=== PATIENT | male | born 1975 | race Caucasian/White ===

== ENCOUNTER 2016-06-30 05:10 | Emergency (ER) ==
[2016-06-30] MEDS ORDERED: MORPHINE IV ONE (05:20)
[2016-06-30] MEDS ORDERED: ZOFRAN IV ONE (05:20)
--- NOTE | 2016-06-30 05:26 | PROVIDER DOCUMENTATION ---
HPI-Chest Pain - General Source: patient, EMS <Hilario Mckay - Last Filed: 06/30/16 05:56> <Dhaval Chen - Last Filed: 06/30/16 06:51> - General Chief Complaint: Chest Pain Stated Complaint: FALL CHEST PAIN Time Seen by Provider: 06/30/16 05:13 Allergies/Adverse Reactions: Patient Allergies Allergy/AdvReac Type Severity Reaction Status Date / Time Penicillins Allergy Severe anaphylacti Verified 06/30/16 05:33 c Home Medications: Home Medication List Medication Instructions Recorded Confirmed Last Taken Type No Home Medications 06/30/16 06/30/16 Unknown History - History of Present Illness-CP Nature of Presenting Problem: pt states he got to get ready for work, felt lightheaded and landed on the floor and has had substernal chest pain since. This happened in the last 30 minutes. The pain is constant, pressure and sharp. It does not radiate although he reports his left arms feels tingling. He has felt slightly SOB, moderate nausea and got very diaphoretic. He denies recent illness. He was given ASA in the ambulance as well as nitro. Currently the paiin is 8/10. 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 no hx of HTN, DM. No FH of CAD. He has never had his cholesterol checked (Hilario Mckay) Review of Systems - Adult - REVIEW OF SYSTEMS - ADULT Constitutional: denies: chills, fever Eyes: denies: discharge Ears, Nose, Mouth & Throat: denies: ear pain, sinus problem, throat pain Cardiovascular: reports: see HPI, syncope. denies: edema, palpitations Respiratory: reports: shortness of breath. denies: cough, pleurisy, wheezing Gastrointestinal: reports: nausea. denies: abdominal pain, diarrhea, vomiting Genitourinary: denies: dysuria, frequency, flank pain Musculoskeletal: denies: back pain, neck pain Integumentary: denies: rash Neurological: denies: headache/migraines, numbness, paresthesia Psychiatric: reports: no symptoms reported Endocrine: reports: no symptoms reported Hematologic/Lymphatic: reports: no symptoms reported Allergic/Immunologic: reports: no symptoms reported All Other Systems: Reviewed and Negative <Eric Mckayjacque TrammellEmma - Last Filed: 06/30/16 05:56> Past History - Adult - PAST MEDICAL HISTORY-ADULT Review of Records: reports: Old Records Reviewed, Nursing Assessment Review, Medications Reviewed, Social history reviewed & non-contributory. Major Childhood Illnesses: reports: denies history Cardiovascular: reports: denies history Respiratory: reports: denies history Gastrointestinal: reports: denies history Obstetrical/Gynecological: reports: denies history Genitourinary: reports: denies history Musculoskeletal: reports: denies history Neurological: reports: denies history Endocrine/Immune: reports: denies history Other Conditions: reports: denies history - PRIOR SURGERIES/PROCEDURES Surgical/Procedure History: reports: reviewed, not pertinent - IMMUNIZATION STATUS Childhood Immunizations: See Nurse Assessment Flu Vaccine: See Nurse Assessment - FAMILY HISTORY Family History: reviewed, not pertinent - SOCIAL HISTORY Smoking: denies Substance Use: amphetamines (quit 1 year ago) Alcohol Use Frequency: never Living Situation: family <GeovannyHilario Real JpEmma - Last Filed: 06/30/16 05:56> Physical Exam-General - PHYSICAL EXAM-ADULT Initial Vital Signs Reviewed: Yes - CONSTITUTIONAL General Appearance: appears well, alert, no apparent distress - EYES Eyes: pink conjunctivae. negative: scleral icterus - HEAD, EARS, NOSE, MOUTH & THROAT HENMT: normocephalic/atraumatic, pharynx normal - NECK Neck: non-tender, full range of motion, supple, normal inspection. negative: lymphadenopathy - RESPIRATORY Respiratory: chest non-tender, lungs clear, normal breath sounds, no pleuratic chest pain, no respiratory distress, no accessory muscle use - CARDIOVASCULAR Cardiovascular: regular rate, rhythm, no edema, no murmur - CHEST (BREASTS) Chest/Breast: negative: no tenderness (mild tenderness that does not reproduce his pain) - GASTROINTESTINAL (ABDOMEN) Abdominal Exam: normal bowel sounds, non tender, soft, no organomegaly, no pulsatile mass - MUSCULOSKELETAL Back Exam: normal inspection, no CVA tenderness, no vertebral tenderness Extremity: non-tender, normal inspection, no pedal edema, no calf tenderness - SKIN Integumentary: normal color, normal turgor, diaphoresis - NEUROLOGIC Neurologic: research consultant II-XII nml as tested, grossly normal, no motor/sensory deficits - PSYCHIATRIC Psych/Mental Status: normal mood/affect, normal thought content, normal thought process, oriented x 3 <Hilario Mckay - Last Filed: 06/30/16 05:56> Progress - EKG 1 Time of EKG reading by physician:: 05:15 EKG Interpretation (*Must complete 3 of following elements*): Normal Rate: 100 Rhythm: sinus [place]: normal QRS: normal [place] Interval: normal ST Wave: normal Prior EKG Comparison: no prior EKG - XRAY 1 XRAY Study: Chest Impression: Normal - CHANGE OF SHIFT REPORT (ED Provider) Report Given and Care Transferred to:: Dr Chen Time of Transfer: 05:56 Items Pending: Labs Tentative Impression of Patient: chest pain <Hilario Mckay - Last Filed: 06/30/16 05:56> - CONSULTS/PCP/HOSPITALIST Notification Time Discussed: 06:50 Consult Disposition: Admit <Dhaval Chen - Last Filed: 06/30/16 06:51> - PLAN OF CARE/RESULTS Progress/Plan/Lab Results: 0640 Assumed care of patient from Dr Mckay at 0600 pending labs. Troponin and D-dimer are neg. EKG and CXR are unremarkable. Pt reports being dizzy and having chest pain at about 0400. Syncope with no sz activity. Was diaphoretic upon presentation. Will contact hospitalist for admission for serial cardiac enzymes and further evaluation. Patient and family are comfortable with the plan. (Dhaval Chen) Departure <Hilario Mckay - Last Filed: 06/30/16 05:56> - Departure Time of Disposition Order: 06:50 Certified Medical Emergency: Emergent <Dhaval Chen - Last Filed: 06/30/16 06:51> - Departure DIAGNOSIS: Syncope, cardiogenic Chest pain Qualifiers: Chest pain type: unspecified Qualified Code(s): R07.9 - Chest pain, unspecified Disposition: ADMITTED INPATIENT 09 Condition: Stable Physician Attestation
[2016-06-30] MEDS ORDERED: NITROGLYCERIN TOP ONE (05:30)
[2016-06-30 05:35] LABS: MANUAL DIFF NEEDED? NO
[2016-06-30 05:43] LABS: BASO% 0.6 % (0.0-0.8); EOS# 0.16 X1000 (0.0-0.7); EOS% 2.3 % (0.0-10.0); HEMATOCRIT 46.5 % (42.0-52.0); HEMOGLOBIN 15.6 g/dL (14.0-18.0); LYMPH# 2.99 X1000 (1.2-3.4); LYMPH% 42.7 % (20.5-51.1); MCH 30.5 PG (27-31); MCHC 33.5 g/dL (33-37); MCV 90.8 FL (81-99); MONO% 5.7 % (1.7-9.3); MPV 10.4 FL (7.4-10.4); NEUT% 48.7 % (42.2-75.2); PLT 351 X1000 (130-400); RBC 5.12 XMIL (4.7-6.1)
[2016-06-30 05:50] LABS: INR 0.93; PROTIME 9.8 Seconds (9.2-11.7); PTT 25.5 Seconds (22.0-36.0)
--- NOTE | 2016-06-30 05:51 | EKG Report ---
Test Performed on : 06/30/2016 05:12:15 AM Test Reason : CP Blood Pressure : / mmHG Vent. Rate : 100 BPM Atrial Rate : 100 BPM P-R Int : 132 ms QRS Dur : 076 ms QT Int : 322 ms P-R-T Axes : 044 053 042 degrees QTc Int : 415 ms Normal sinus rhythm. Normal ECG No previous ECGs available Unconfirmed Result
[2016-06-30 06:07] LABS: AGAP 12; ALBUMIN 4.5 g/dL (3.5-5.0); ALKALINE PHOSPHATASE 87 U/L (32-122); BUN 11 mg/dL (8-22); CALCIUM 9.5 mg/dL (8.8-10.2); CHLORIDE 101 mmol/L (98-107); CK PROFILE 95 U/L (24-204); COSMO 277; GOT 17 U/L (10-34); GPT 26 U/L (10-44); MAGNESIUM 1.8 mg/dL (1.5-2.7); POTASSIUM 4.4 mmol/L (3.5-5.1); SODIUM 139 mmol/L (136-145); TCO2 26 mmol/L (25-35); TOTAL BILIRUBIN 0.22 mg/dL (0.20-1.00); TOTAL PROTEIN 7.7 g/dL (6.3-8.3)
--- NOTE | 2016-06-30 06:43 | Diag Imaging Result Document ---
PROCEDURE NAME: CHEST-2 VIEWS - 06/30/2016 FRONTAL AND LATERAL CHEST, TWO VIEWS: COMPARISON: Compared to 09/23/2015. FINDINGS: The lungs are well expanded. The heart is not enlarged. The vessels are not distended. No pneumonia. No pleural effusions. No free air beneath the diaphragm. IMPRESSION: No acute abnormality.
[2016-06-30] MEDS ORDERED: NITROGLYCERIN SL ONE (08:08)
[2016-06-30 09:48] LABS: UR AMPHETAMINES QUAL NONE DETECTED (NONE DETECT); UR BARBITUATES QUAL NONE DETECTED (NONE DETECT); UR BENZODIAZEPIN QUAL NONE DETECTED (NONE DETECT); UR CANNABINOIDS QUAL NONE DETECTED (NONE DETECT); UR COCAINE QUAL NONE DETECTED (NONE DETECT); UR METHADONE QUAL NONE DETECTED (NONE DETECT); UR OPIATES QUAL PRESUMPTIVE POSITIVE (NONE DETECT); UR OXYCODONE QUAL NONE DETECTED (NONE DETECT); UR PCP QUAL NONE DETECTED (NONE DETECT)
--- NOTE | 2016-06-30 10:23 | ED EKG INTERP ---
EKG Interpretation - EKG Time of EKG reading by physician:: 10:21 EKG Read and Signed by:: Dhaval Chen EKG Interpretation (*Must complete 3 of following elements*): Normal Rate: 67 Rhythm: NSR [place]: normal QRS: normal [place] Interval: normal ST Wave: normal Attestation - Scribe Verification/Attestation Scribe:: Jamil Mcknight Acting as Scribe for:: Dhaval Chen Scribe documention review:: This chart was documented by a scribe and accurately reflects the service the provider performed and the decisions made by the provider. Physician Attestation - Physician Attestation I, the provider, attest to the following statement:: Dhaval Chen Physician documentation Attestation:: This documentation recorded by the scribe accurately reflects the service I personally performed and the decisions made by me.
[2016-06-30 10:46] VITALS: BP 107/77
--- NOTE | 2016-06-30 13:38 | EKG Report ---
Test Performed on : 06/30/2016 10:06:30 AM Test Reason : ED. Not ordered in [place] Blood Pressure : / mmHG Vent. Rate : 067 BPM Atrial Rate : 067 BPM P-R Int : 156 ms QRS Dur : 082 ms QT Int : 370 ms P-R-T Axes : 032 008 022 degrees QTc Int : 390 ms Normal sinus rhythm. Normal ECG When compared with ECG of 30-JUN-2016 05:12, (Unconfirmed) Vent. rate has decreased BY 33 BPM Unconfirmed Result
--- NOTE | 2016-06-30 14:55 | CONSULTATION ---
DATE OF CONSULTATION: 06/30/2016 REQUESTING PHYSICIAN: Dr. Chen REASON FOR CONSULTATION: Evaluation of patient for admission. CHIEF COMPLAINT: Chest pain. HISTORY OF PRESENT ILLNESS: The patient is a 40-year-old white male with no past medical history, who presented to the emergency room with few month history of chest pain. The pain is palpable, at is about 2/6. The patient has no nausea or vomiting associated with it, just pain is reproducible. This morning, when he woke-up he was in the bathroom and he has almost passed out. He did not hit his head or any other part of his body according to him that can be obviously seen. His electrocardiogram is normal when he came in. The patient is still having some 1/10 chest pain, sharp in nature, associated with breathing, associated with movement. Nothing makes it better. Nothing makes it worse. The pain does not radiate. The patient reports having a mild cough for the past several weeks, but no productive cough. 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 PAST MEDICAL HISTORY: None. PAST SURGICAL HISTORY: None. ALLERGIES: Allergy to penicillin that caused anaphylactic shock. FAMILY HISTORY: Mother has heart disease at later age in life, but still alive. SOCIAL HISTORY: The patient denies tobacco, alcohol, or drugs. Currently he was a previous drug user. HOME MEDICATIONS: The patient not take any medications. REVIEW OF SYSTEMS: Twelve systems were reviewed and were negative for any acute process. PHYSICAL EXAMINATION: Vital Signs: Blood pressure 119/75, pulse of 93, respiration 18, temperature 98.2 degrees, sat 93-99% on room air. General Appearance: Well- developed, well- nourished white male, in no acute distress. HEENT: Anicteric. Clear conjunctivae. Neck: Supple. No jugular venous distention. No bruit. Cardiovascular: S1, S2. Normal rate and rhythm. No murmur, rubs, or gallops. Pulmonary: Clear to auscultation bilaterally. Gastrointestinal: Soft, nontender, nondistended. Normoactive bowel sounds. Musculoskeletal: No clubbing, cyanosis, or edema. LABORATORY DATA: His white count 7.01, hemoglobin 15.6, hematocrit of 46.5, platelets of 351,000. Chemistry: Sodium 139, potassium 4.4, chloride 101, bicarb 26. BUN 11, creatinine 1.0. Liver function tests within normal limit. Troponins 2 sets were negative. Chest x- ray is normal. EKG showed sinus rhythm. No ST changes. ASSESSMENT AND PLAN: This is a 40-year-old presented to the emergency room with syncope. Syncope consistent with vasovagal. The patient was urinating when this happened. The patient is too young to have significant coronary artery or peripheral vascular disease to cause him to have cardiovascular syncope. His troponin has been negative. His chest pain is consistent with musculoskeletal. PLAN: Will discharge the patient home with anti-inflammatories for the next 5 days and have him to follow will cardiology if he continues to have further syncopal episodes, but this episode is consistent with vasovagal. MTDJalyn
== END 2016-06-30 11:29 | disposition home or self-care (01) ==
LOC: ED 05:10
DX: R55 Syncope and collapse (principal); R07.89 Other chest pain; R42 Dizziness and giddiness; R06.02 Shortness of breath; R11.0 Nausea; R61 Generalized hyperhidrosis
CPT/HCPCS: 71020; 80053; 82550; 82948; 83735; 83880; 84484; 85025; 85379; 85610; 85730; 93005; G0480; J2270; J2405; 80324; 80345; 80346; 80349; 80353; 80358; 80361; 80365; 83992

== ENCOUNTER 2016-06-30 19:55 | Inpatient (IN) ==
--- NOTE | 2016-06-30 20:54 | PROVIDER DOCUMENTATION ---
HPI-Cardiac General <Cherie Kohli - Last Filed: 06/30/16 21:09> - General Source: patient, family - History of Present Illness-Cardiac Location: reports: substernal Quality of Pain: reports: pressure, tearing Severity in ED: moderate Onset/Duration: abrupt, 1-3 hours ago Timing: improving Context/Activities at Onset: reports: light activity Modifying Factors: improves with: nothing History of arrythmia: reports: none Recent use of:: reports: no stimulants Prior Chest Pain/Cardiac Workup: reports: no prior cardiac workup Associated Symptoms: reports: diaphoresis, dizziness, nausea Similar Symptoms Previously?: Yes Recently Seen Here or By Another Healthcare Provider: Yes (This am) <Rico Kwok - Last Filed: 07/01/16 01:52> - General Chief Complaint: Altered Mental Status Stated Complaint: AMS Time Seen by Provider: 06/30/16 20:09 Allergies/Adverse Reactions: Patient Allergies Allergy/AdvReac Type Severity Reaction Status Date / Time Penicillins Allergy Severe anaphylacti Verified 06/30/16 20:15 c Home Medications: Home Medication List Medication Instructions Recorded Confirmed Last Taken Type Indomethacin [Indocin] 25 mg PO TID #15 capsule 06/30/16 06/30/16 06/30/16 19: 30 Rx - History of Present Illness-Cardiac Nature of Presenting Problem: 40 yo WM brought to ER via ambulance due to a third episode of severe chest pain associated with intense diaphoresis, and nausea. He had similar CP several weeks ago but did not seek medical attention and a second episode around 4 am today. He was evaluated in the ER and eventually discharged by the Hospitalist from the ER. CXR. troponin etc where normal. He returns tonight wisth intense diaphoresis and CP. (Rico Kwok) Review of Systems - Adult - REVIEW OF SYSTEMS - ADULT ROS:: limited per condition Constitutional: reports: no symptoms reported, see HPI Eyes: reports: no symptoms reported Ears, Nose, Mouth & Throat: reports: no symptoms reported Cardiovascular: reports: see HPI Respiratory: reports: see HPI Gastrointestinal: reports: no symptoms reported Genitourinary: reports: no symptoms reported Musculoskeletal: reports: no symptoms reported Integumentary: reports: no symptoms reported Neurological: reports: no symptoms reported Psychiatric: reports: no symptoms reported Endocrine: reports: no symptoms reported Hematologic/Lymphatic: reports: no symptoms reported Allergic/Immunologic: reports: no symptoms reported All Other Systems: Reviewed and Negative <Rico Kwok - Last Filed: 07/01/16 01:52> Past History - Adult - PAST MEDICAL HISTORY-ADULT Review of Records: reports: Old Records Reviewed Major Childhood Illnesses: reports: denies history Cardiovascular: reports: denies history Respiratory: reports: denies history Gastrointestinal: reports: denies history Obstetrical/Gynecological: reports: denies history Genitourinary: reports: denies history Musculoskeletal: reports: denies history Neurological: reports: denies history Endocrine/Immune: reports: denies history Other Conditions: reports: denies history - PRIOR SURGERIES/PROCEDURES Surgical/Procedure History: reports: reviewed, not pertinent - IMMUNIZATION STATUS Childhood Immunizations: See Nurse Assessment Flu Vaccine: See Nurse Assessment - FAMILY HISTORY Family History: reviewed, not pertinent - SOCIAL HISTORY Substance Use: none presently/history of abuse, amphetamines <Rico Kwok - Last Filed: 07/01/16 01:52> Physical Exam-General - PHYSICAL EXAM-ADULT Initial Vital Signs Reviewed: Yes - CONSTITUTIONAL General Appearance: alert, mild distress - EYES Eyes: PERRL/EOMI, pink conjunctivae - HEAD, EARS, NOSE, MOUTH & THROAT HENMT: normocephalic/atraumatic, moist mucous membranes, normal ENT inspection - NECK Neck: non-tender, full range of motion - RESPIRATORY Respiratory: chest non-tender, lungs clear, normal breath sounds, no respiratory distress - CARDIOVASCULAR Cardiovascular: normal peripheral pulses - GASTROINTESTINAL (ABDOMEN) Abdominal Exam: normal bowel sounds, non tender, soft, no organomegaly - LYMPHATIC Lymphatic: no adenopathy - MUSCULOSKELETAL Extremity: normal range of motion, non-tender Peripheral Pulses: radial (R): 3+, radial (L): 3+ - SKIN Integumentary: normal color, normal turgor - NEUROLOGIC Neurologic: grossly normal - PSYCHIATRIC Psych/Mental Status: negative: normal thought content, normal thought process, oriented x 3 <Rico Kwok - Last Filed: 07/01/16 01:52> Progress - EKG 1 Time of EKG reading by physician:: 20:05 EKG Read and Signed by:: Rico Kwok EKG Interpretation (*Must complete 3 of following elements*): Abnormal Rate: 83 Rhythm: NSR ST Wave: non-specific ST changes (junctional ST depression) <Cherie Kohli - Last Filed: 06/30/16 21:09> - EKG 1 Time of EKG reading by physician:: 01:24 EKG Read and Signed by:: Rico Kwok EKG Interpretation (*Must complete 3 of following elements*): Normal Rate: 80 Rhythm: sinus [place]: normal <Rico Kwok - Last Filed: 07/01/16 01:52> Departure <Cherie Kohli - Last Filed: 06/30/16 21:09> - Departure Time of Disposition Order: 00:20 Certified Medical Emergency: Emergent - Critical Care Note Total Time (mins): 30 Critical Care Statement: This patient required my direct personal management to treat or rule out processes, the absence of which, could potentiallly result in sudden, clinically significant life or limb threatening deterioration. <Rico Kwok - Last Filed: 07/01/16 01:52> - Departure DIAGNOSIS: Chest pain Qualifiers: Chest pain type: other chest pain Qualified Code(s): R07.89 - Other chest pain Disposition: ADMITTED INPATIENT 09 Condition: Fair Referrals: None,PCP [Primary Care Provider] - Physician Attestation
[2016-06-30] MEDS ORDERED: NORCO-7.5 PO ONE (21:40)
[2016-06-30] MEDS ORDERED: G.I. COCKTAIL PO ONE (23:08)
[2016-07-01] MEDS ORDERED: ZOFRAN IV PRN (01:46)
[2016-07-01] MEDS: TYLENOL PO PRN (02:24)
--- NOTE | 2016-07-01 04:32 | HISTORY AND PHYSICAL ---
CHIEF COMPLAINT: Chest pain. HISTORY OF PRESENTING ILLNESS: A 40-year-old male without any past medical history, had presented to Emergency Department with 3 weeks' history of some intermittent chest pain. He describes it as substernal and sharp and at times pressure-like with radiation to left upper arm. The patient was seen in the ER earlier in the morning and at that time, he was diagnosed with musculoskeletal pain and sent home; however, he returned back with more intense pain and was somewhat diaphoretic and due to his presenting symptoms, it was thought that we would place him for observation for further evaluation and management. At the time of my examination, he had denied any headaches, vision changes, fevers, chills, shortness of breath, hemoptysis, melena, weight changes, but complained of chest discomfort. PAST MEDICAL HISTORY: None. PAST SURGICAL HISTORY: None. ALLERGIES: Penicillin. CURRENT MEDICATIONS: None. SOCIAL HISTORY: No history of smoking. Admits to social alcohol use in the past. History of methamphetamine use in the past. He states he has been clean for about a year. FAMILY HISTORY: Positive for coronary disease in mother. REVIEW OF SYSTEMS: Twelve point review of systems listed as in HPI. Other systems negative. PHYSICAL EXAMINATION: GENERAL: Cooperative, friendly male. He is resting comfortably now. VITAL SIGNS: Temperature 97.9 degrees, pulse 83, respiration 18, blood pressure 138/78, saturating 100%. HEENT: Atraumatic, normocephalic. Extraocular movements intact. PERRLA. NECK: Supple. CHEST: Clear to auscultation. CARDIOVASCULAR: Regular rate and rhythm. ABDOMEN: Soft, nontender. Positive bowel sounds. EXTREMITIES: No edema. NEURO: He is awake, alert, oriented x3. : No bladder distention. SKIN: Warm. LABORATORY STUDIES: Troponin is 0.0. ASSESSMENT: This is a 40-year-old male, who had presented to the emergency department 2 times with complaint of chest pain. We will place patient for observation for further evaluation and management. Chest pain. PLAN: 1. We will admit patient to medical floor with telemetry. 2. Continue with cardiac workup. Check EKG, serial cardiac enzymes. Have patient continue on aspirin. Use sublingual nitroglycerin, morphine p.r.n. chest pain. 3. We will check an echocardiogram and schedule patient for a nuclear GXT. 4. We will continue to follow and reassess. MTDD
[2016-07-01] MEDS ORDERED: FLUZONE QUAD 2016-2017 SYRINGE IM ONE (06:00)
--- NOTE | 2016-07-01 06:03 | EKG Report ---
Test Performed on : 06/30/2016 8:05:15 PM Test Reason : CP Blood Pressure : / mmHG Vent. Rate : 083 BPM Atrial Rate : 083 BPM P-R Int : 128 ms QRS Dur : 076 ms QT Int : 348 ms P-R-T Axes : 058 024 027 degrees QTc Int : 408 ms Normal sinus rhythm. Junctional ST depression, probably normal Borderline ECG When compared with ECG of 30-JUN-2016 10:06, (Unconfirmed) No significant change was found Unconfirmed Result
[2016-07-01] MEDS: PRILOSEC PO SCH (06:16)
--- NOTE | 2016-07-01 07:52 | Diag Imaging Result Document ---
PROCEDURE NAME: CTA THORAX/ABDOMEN/PELVIS - 06/30/2016 CT ANGIOGRAM THORAX AND ABDOMEN WITH CONTRAST: Exam performed with intravenous contrast. Axial and reformatted sagittal and coronal images are obtained. A dose-reduction protocol was used. FINDINGS: There is no evidence of aortic aneurysm. There is no evidence of aortic dissection. There is no mediastinal hematoma or pericardial fluid identified. There is subsegmental atelectasis at the left lingula. The remainder of the lungs appear clear. There is no consolidation, pleural effusion, or pneumothorax identified. While this is not a dedicated CT pulmonary angiogram, there are no filling defects identified in the pulmonary arteries. There is retained fecal debris in the colon suggesting constipation. There is no evidence of bowel obstruction. There is no free air. There are nonspecific small retroperitoneal lymph nodes. IMPRESSION: 1. No evidence of aortic aneurysm. No evidence of aortic dissection. 2. Subsegmental atelectasis at left lingula. No pneumonia. No pleural effusion. No pneumothorax. 3. Evidence of constipation noted. The on-call radiologist provided preliminary results at 9:43 p.m. on 06/30/2016.
[2016-07-01 08:05] LABS: MANUAL DIFF NEEDED? NO
[2016-07-01 08:06] LABS: BASO% 0.3 % (0.0-0.8); EOS# 0.16 X1000 (0.0-0.7); EOS% 2.2 % (0.0-10.0); HEMATOCRIT 42.4 % (42.0-52.0); HEMOGLOBIN 14.4 g/dL (14.0-18.0); LYMPH# 2.49 X1000 (1.2-3.4); LYMPH% 34.5 % (20.5-51.1); MCH 30.8 PG (27-31); MCV 90.6 FL (81-99); MONO% 6.9 % (1.7-9.3); MPV 9.9 FL (7.4-10.4); NEUT% 56.1 % (42.2-75.2); PLT 286 X1000 (130-400); RBC 4.68 XMIL (4.7-6.1)
[2016-07-01 08:07] LABS: ALLEN TEST YES; BLOOD TYPE ARTERIAL; DRAW SITE L RADIAL; METHB 1.5 % (0.0-1.5); O2(CT) 20.6 mL/dL (15.0-23.0); PCO2(98.6) 44 mmHg (35-45); PO2(98.6) 81 mmHg (60-100); SAMPLE BLOOD; SAO2 98.5 % (95.0-100.0); THB 15.4 g/dL (11.5-17.4)
[2016-07-01 08:08] LABS: MODALITY ROOM AIR
[2016-07-01 08:35] LABS: AGAP 13; ALBUMIN 4.1 g/dL (3.5-5.0); ALKALINE PHOSPHATASE 76 U/L (32-122); BUN 12 mg/dL (8-22); CALCIUM 9.1 mg/dL (8.8-10.2); CHLORIDE 100 mmol/L (98-107); COSMO 275; GOT 15 U/L (10-34); GPT 21 U/L (10-44); POTASSIUM 4.3 mmol/L (3.5-5.1); SODIUM 138 mmol/L (136-145); TCO2 25 mmol/L (25-35); TOTAL BILIRUBIN 0.25 mg/dL (0.20-1.00); TOTAL PROTEIN 6.8 g/dL (6.3-8.3)
[2016-07-01 09:40] LABS: UR AMPHETAMINES QUAL NONE DETECTED (NONE DETECT); UR BARBITUATES QUAL PRESUMPTIVE POSITIVE (NONE DETECT); UR BENZODIAZEPIN QUAL NONE DETECTED (NONE DETECT); UR CANNABINOIDS QUAL NONE DETECTED (NONE DETECT); UR COCAINE QUAL NONE DETECTED (NONE DETECT); UR METHADONE QUAL NONE DETECTED (NONE DETECT); UR OPIATES QUAL PRESUMPTIVE POSITIVE (NONE DETECT); UR OXYCODONE QUAL NONE DETECTED (NONE DETECT); UR PCP QUAL NONE DETECTED (NONE DETECT)
[2016-07-01] MEDS: ASPIRIN PO SCH (10:19)
--- NOTE | 2016-07-01 12:49 | PROGRESS NOTE ---
DATE: 07/01/2016 SUBJECTIVE: The patient is still complaining of having chest pain and headache. OBJECTIVE: Vital Signs: Blood pressure 99/51, pulse of 51, respirations 16, temperature 97.8 degrees, saturation 96% on room air. General Appearance: Well-developed, well-nourished white male, in no acute distress. HEENT: Anicteric. Clear conjunctivae. Neck: Supple. No JVD. No bruit. Cardiovascular: S1 and S2. Normal rate and rhythm. No murmur, rubs, or gallops. Pulmonary: Clear to auscultation bilaterally. Gastrointestinal: Soft, nontender, nondistended. Normoactive bowel sounds. Musculoskeletal: No clubbing, cyanosis, or edema. LABORATORY: Sodium 138, potassium 4.3, chloride 100, bicarbonate 25, BUN 12, creatinine 0.9, glucose 91. White count 7.22, hemoglobin 14.4, hematocrit 42.4, platelets 286,000. Troponin x3 sets were negative. The CAT scan of the abdomen, chest, and pelvis was also negative. ASSESSMENT AND PLAN: This is a 40-year-old white male, admitted to the hospital for chest pain twice within 24 hours with negative troponin normal EKG. 1. Chest pain. Very atypical for cardiac, however, we will get an echocardiogram and we will get a nuclear medicine stress test. 2. Questionable seizure versus complex migraine. The patient has episode of severe headache followed by confusion and feeling drained afterwards. Will send the patient for an MRI. We will get an EEG to rule out seizure. We will most likely put the patient on Keppra for his complex migraine. 3. Deep vein thrombosis prophylaxis. The patient on Lovenox. 4. Code Status: The patient is a full code.
[2016-07-01] MEDS ORDERED: LEXISCAN ONE (13:57)
--- NOTE | 2016-07-01 17:13 | Diag Imaging Result Document ---
PROCEDURE NAME: MYOCARDIAL PERF SCAN, STR/REST - 07/01/2016 HISTORY: [id number] male. PROCEDURE: Rest/stress Lexiscan myocardial perfusion study. INDICATION: Chest pain. DESCRIPTION: The patient came into the nuclear lab on 07/01/2016 and received a rest injection of technetium-99 sestamibi 13.2 mCi. Multiple tomographic views of the cardiac structure were obtained at rest. Subsequently, patient underwent infusion of Lexiscan 0.4 mg. At peak infusion, injected with technetium-99 sestamibi 35.2 mCi. Multiple tomographic views of the cardiac structure were obtained following the completion of protocol. SUMMARY OF ELECTROCARDIOGRAPHIC PORTION OF THE STUDY: Resting electrocardiogram showed sinus rhythm, rate 61 beats per minute, resting blood pressure 141/88. Resting ECG was normal. During infusion of Lexiscan, the heart rate increased to a maximum of 113 beats per minute. Blood pressure went up to 163/94. The patient reported no chest pain, shortness of breath, or palpitations. EKG showed no significant ischemic changes. Following the completion of infusion, the heart rate and blood pressure returned back to his baseline. The patient reported no chest pain or any symptoms during the recovery phase. SUMMARY: Electrocardiographic response to infusion of Lexiscan is deemed to be normal. SUMMARY OF THE MYOCARDIAL PERFUSION PORTION OF THE STUDY: Poststress tomographic views of the left ventricle showed normal homogeneous distribution of radiotracer throughout the entire left ventricular myocardium. There is no evidence of any postexercise defect. Rest images showed normal perfusion. Polar plots reveal similar findings. There is no evidence of any inducible ischemia. No myocardial scar. Gated SPECT shows normal left ventricular systolic function, ejection fraction estimated at 73%, with normal ventricular volumes. No wall motion abnormality. Lung/heart ratio is normal. TID is normal. SUMMARY: This study showed: 1. Unremarkable electrocardiographic response to a plain Lexiscan protocol. 2. Normal poststress myocardial perfusion scan. There is no scintigraphic evidence of pharmacologically induced myocardial ischemia utilizing Lexiscan protocol. 3. Normal left ventricular systolic function, ejection fraction estimated at 73%, with normal ventricular volumes. No wall motion abnormality. 4. This study represents a low risk for ischemic events. 5. Clinical correlation is recommended.
--- NOTE | 2016-07-01 17:50 | Diag Imaging Result Document ---
PROCEDURE NAME: MRI BRAIN W W/O CONTRAST - 07/01/2016 MRI BRAIN WITHOUT AND WITH CONTRAST: FINDINGS: Images are obtained prior to and following Omniscan administration. No comparison MRI brain is available. There is no evidence of hemorrhage, mass effect, midline shift, or hydrocephalus. There are no substantial signal abnormalities identified. The diffusion-weighted images show no areas of restricted diffusion (no evidence of acute infarct). There is no abnormal enhancement seen. IMPRESSION: No visible intracranial abnormality.
--- NOTE | 2016-07-01 18:09 | ECHO REPORT ---
ORDER DATE: 07/01/2016 INTERPRETING PHYSICIAN: Dr. Prasad REQUESTING PHYSICIAN: CLINICAL INDICATIONS: Chest pain. M-MODE MEASUREMENTS: Right ventricle: 1.9 cm. Left ventricle end diastole: 4.5 cm. Left ventricle end systole: 2.9 cm. Posterior wall: 1.9 cm. Interventricular septum: 1.9 cm. Left atrium: 3.2 cm. Aortic root: 3.5 cm. SUMMARY OF 2-DIMENSIONAL IMAGIN. Left ventricular function is normal. Ejection fraction is 62%. The chamber appears to be within normal range. 2. Right ventricle appears to be normal. 3. Atria appear to be normal. 4. The mitral valve looks normal. Color flow mapping indicates mild degree of regurgitation. 5. Pulse wave Doppler of mitral inflow shows normal E/A ratio. Tissue Doppler of septal and lateral mitral annulus averages 10 cm. 6. Aortic valve looks normal. Color flow mapping is unremarkable. 7. Pulmonic valve looks normal. Color flow mapping is unremarkable. 8. Tricuspid valve shows mild degree of regurgitation. 9. Pulmonary pressure is estimated at 31 mmHg. Clinical correlation is recommended.
[2016-07-02 05:47] LABS: MANUAL DIFF NEEDED? NO
[2016-07-02 06:01] LABS: BASO% 0.3 % (0.0-0.8); EOS# 0.13 X1000 (0.0-0.7); HEMATOCRIT 41.5 % (42.0-52.0); HEMOGLOBIN 14.2 g/dL (14.0-18.0); LYMPH# 1.91 X1000 (1.2-3.4); LYMPH% 29.6 % (20.5-51.1); MCH 31.1 PG (27-31); MCHC 34.2 g/dL (33-37); MCV 90.8 FL (81-99); MONO# 0.43 X1000 (0.11-0.59); MONO% 6.7 % (1.7-9.3); MPV 10.1 FL (7.4-10.4); NEUT% 61.4 % (42.2-75.2); PLT 273 X1000 (130-400); RBC 4.57 XMIL (4.7-6.1)
[2016-07-02] MEDS: PRILOSEC PO SCH (06:29)
[2016-07-02] MEDS: ASPIRIN PO SCH (08:22)
[2016-07-02] MEDS: TYLENOL PO PRN (08:22)
[2016-07-02] MEDS ORDERED: KEPPRA PO SCH (11:15)
[2016-07-02 12:27] VITALS: BP 134/71
--- NOTE | 2016-07-02 14:02 | EEG REPORT ---
DATE: 07/01/2016 EEG #[id number] done on 07/01/2016. COMMENT: This is a digitally recorded EEG on a 40-year-old patient with reported history of episodes, question of seizure. FINDINGS: During waking, medium amplitude 10 Hz posterior rhythm is present symmetrically and reacts normally to eye opening. Background contains polymorphic and rhythmic theta frequencies over the frontal and central regions symmetrically. Drowsing occurred with attenuation of the posterior rhythm and appearance of more generalized slowing. Stage 2 sleep was not recorded. Photic stimulation did not significantly alter the record. There were several 2-2.5 second bursts of high-amplitude slowing with associated sharp wave, sharp and slow wave repetitive discharges. These were generalized. In addition, there was some eye blink artifact. The EEG was immediately normal after these short bursts. INTERPRETATION: Abnormal EEG because of generalized epileptiform discharge. CORRELATION: This is consistent with clinical seizure. [facility]
--- NOTE | 2016-07-03 08:07 | DISCHARGE SUMMARY ---
ADMISSION DATE: 07/01/2016 DISCHARGE DATE: 07/02/2016 PCP: None. DISCHARGE DIAGNOSIS: Complex migraine. DISCHARGE MEDICATIONS: 1. Indocin p.r.n. 2. Keppra 500 mg b.i.d. CONSULTATION: No consultation. PROCEDURES: No procedure. SIGNIFICANT LABORATORY AND IMAGINGS: Cardiac stress tests were negative for any reversible ischemia. EF is normal on echocardiogram. MRI of the brain was negative for any acute process. White count of 6.46, hemoglobin 14.2, hematocrit of 41.5, platelets of 273,000. Sodium 138, potassium 4.3, chloride 100, bicarb 25, BUN 12, creatinine 0.9, glucose of 91. HOSPITAL COURSE: The patient is a 40-year-old white male with a distant past history of drug use presented to the emergency room with headache and body ache, chest pain. I saw the patient once in the ER and sent him home. He came back within 24 hours, admitted for chest pain. We had the echocardiogram that was normal, troponin 3 sets were negative. Cardiac stress test was also negative. The patient started complaining having headache and some dizziness. We sent the patient for the MRI of the brain that was normal. We started the patient on Keppra twice a day for his complex migraine. I do not believe that the patient has seizure. We started him on the 1st of Keppra while he was in the hospital was given him his prescription for him to go home with. Advised the patient to establish a PCP to follow up with for his migraine. Overall he is doing well. PHYSICAL EXAMINATION: Vital Signs: At discharge blood pressure 134/71, pulse 74, respirations 16, temperature 98.4 degrees, saturations 99% room air. General appearance: Well-developed, well-nourished white male in no acute distress. HEENT: Anicteric. Clear conjunctivae. Neck: Supple. No JVD. No bruit. Cardiovascular: S1, S2. Normal rate and rhythm. No murmur, rubs, or gallops. Pulmonary: Clear to auscultation bilaterally. GI: Soft, nontender, nondistended. Normoactive bowel sounds. Musculoskeletal: No clubbing, cyanosis or edema. PLAN: Will discharge the patient home. CONDITION: Stable and improving. ACTIVITY: As tolerated. FOLLOWUP: The patient can follow with his PCP 1-2 weeks. TOTAL TIME: Discharging this patient 35 minutes.
== END 2016-07-02 14:26 | disposition home or self-care (01) | DRG 103 ==
LOC: ED 19:55 → 4N 07-01 01:23 → OBSVTOIN 07-01 01:23
PROVIDERS: ATTEND Internal Medicine
DX: G43.809 Other migraine, not intractable, without status migrainosus (principal); M79.622 Pain in left upper arm; R07.2 Precordial pain; R07.89 Other chest pain; Z23 Encounter for immunization; Z79.1 Long term (current) use of non-steroidal anti-inflammatories (NSAID); Z82.49 Family history of ischemic heart disease and other diseases of the circulatory system
CPT/HCPCS: 70553; 71275; 74174; 78452; 80053; 80061; 82805; 82948; 83721; 84484; 85025; 93005; 93017; 93306; 95816; A9500; A9579; G0480; J2405; Q2038; Q9967; 80324; 80345; 80346; 80349; 80353; 80358; 80361; 80365; 83992